=== PATIENT | male | born 1940 | race Two or more races ===

== ENCOUNTER → 2024-02-11 | Outpatient (CLI) | payer MEDICARE, MEDICAID, SELFPAY ==
[2024-02-11 11:32] LABS: Basophils # (Auto) 0.1 Thou/mm3 (0.0-0.2); Basophils % (Auto) 1 % (0-2.5); Eosinophils # (Auto) 0.2 Thou/mm3 (0.0-0.5); Eosinophils % (Auto) 3 % (0-10); Hematocrit 36.8 % (41.0-53.0); Hemoglobin 11.9 g/dL (13.5-16.0); Immature Granulocytes % (Auto) 0 % (0-0); Immature Granulocytes Auto 0.02 Thou/mm3 (0.00-0.00); Lymphocytes # (Auto) 1.8 Thou/mm3 (1.0-4.8); Lymphocytes % (Auto) 29 % (10-50); Mean Corpuscular HGB Conc 32.3 g/dl (31.0-37.0); Mean Corpuscular Hemoglobin 31.5 pg (25.0-35.0); Mean Corpuscular Volume 97 fL (80-100); Monocytes # (Auto) 0.5 Thou/mm3 (0.0-0.8); Monocytes % (Auto) 9 % (0-12); Neutrophils # (Auto) 3.5 Thou/mm3 (1.8-7.7); Neutrophils % (Auto) 58 % (37-80); Nucleated Red Blood Cell % 0 /100 WBC (0); Platelet Count 198 Thou/mm3 (140-440); RDW Standard Deviation 45.1 fL (35.1-43.9); Red Blood Count 3.78 Miln/mm3 (4.50-5.90)
[2024-02-11 11:53] LABS: Prostate Specific Antigen < 0.10 ng/mL (0-4.00)
[2024-02-11 11:57] LABS: Alanine Aminotransferase 9 U/L (10-49); Albumin, Serum 3.9 gm/dL (3.4-4.8); Albumin/Globulin Ratio 1.6 (1.2-2.2); Alkaline Phosphatase 62 U/L (46-116); Anion Gap 6 (7-16); Aspartate Amino Transferase 15 U/L (0-34); BUN/Creatinine Ratio 18 Ratio (12-20); Bilirubin,Total 0.5 mg/dL (0.3-1.2); Blood Urea Nitrogen 18 mg/dL (9-23); Calcium 9.6 mg/dL (8.3-10.6); Calcium (Corrected) 9.7 mg/dL (8.5-10.1); Chloride 111 mMol/L (98-107); Globulin 2.5 gm/dL (2.3-3.5); Glucose 101 mg/dL (74-106); Osmolality,Calculated 288 (275-295); Potassium 5.2 mMol/L (3.4-5.1); Sodium 144 mMol/L (136-145); Total Protein 6.4 gm/dL (5.7-8.2); eGFR > 60 See Note
== END | disposition home or self-care (01) ==
LOC: SCTO 10:15
PROVIDERS: PCP Family Medicine; Referring Provider Nurse Practitioner Family; Visit Provider Nurse Practitioner Family
DX: C61 Malignant neoplasm of prostate (principal); C79.51 Secondary malignant neoplasm of bone
CPT/HCPCS: 36415; 80053; 84153; 85025

== ENCOUNTER 2024-02-12 08:57 | Outpatient (RCR) | payer MEDICARE, MEDICAID, SELFPAY | END 2024-02-23 23:59 | disposition home or self-care (01) | LOC: SCTC 08:57 | PROVIDERS: PCP Family Medicine; Referring Provider Family Medicine; Visit Provider Nurse Practitioner Family | DX: C61 Malignant neoplasm of prostate (principal); C79.51 Secondary malignant neoplasm of bone; Z79.818 Long term (current) use of other agents affecting estrogen receptors and estrogen levels | CPT/HCPCS: 99212; G0463 ==

== ENCOUNTER → 2024-02-28 | Outpatient (CLI) | payer MEDICARE, MEDICAID, SELFPAY ==
[2024-02-28 11:50] LABS: Basophils % (Auto) 1 % (0-2.5); Eosinophils # (Auto) 0.2 Thou/mm3 (0.0-0.5); Eosinophils % (Auto) 3 % (0-10); Hematocrit 37.1 % (41.0-53.0); Hemoglobin 12.2 g/dL (13.5-16.0); Immature Granulocytes % (Auto) 0 % (0-0); Immature Granulocytes Auto 0.02 Thou/mm3 (0.00-0.00); Lymphocytes # (Auto) 1.7 Thou/mm3 (1.0-4.8); Lymphocytes % (Auto) 29 % (10-50); Mean Corpuscular HGB Conc 32.9 g/dl (31.0-37.0); Mean Corpuscular Hemoglobin 31.8 pg (25.0-35.0); Mean Corpuscular Volume 97 fL (80-100); Monocytes # (Auto) 0.5 Thou/mm3 (0.0-0.8); Monocytes % (Auto) 9 % (0-12); Neutrophils # (Auto) 3.5 Thou/mm3 (1.8-7.7); Neutrophils % (Auto) 58 % (37-80); Nucleated Red Blood Cell % 0 /100 WBC (0); Platelet Count 195 Thou/mm3 (140-440); RDW Standard Deviation 44.9 fL (35.1-43.9); Red Blood Count 3.84 Miln/mm3 (4.50-5.90)
[2024-02-28 12:07] LABS: Prostate Specific Antigen < 0.10 ng/mL (0-4.00)
[2024-02-28 12:35] LABS: Alanine Aminotransferase 10 U/L (10-49); Albumin/Globulin Ratio 1.7 (1.2-2.2); Alkaline Phosphatase 58 U/L (46-116); Anion Gap 7 (7-16); Aspartate Amino Transferase 13 U/L (0-34); BUN/Creatinine Ratio 17 Ratio (12-20); Bilirubin,Total 0.4 mg/dL (0.3-1.2); Blood Urea Nitrogen 19 mg/dL (9-23); Calcium 9.6 mg/dL (8.3-10.6); Calcium (Corrected) 9.6 mg/dL (8.5-10.1); Carbon Dioxide 27.5 mMol/L (20.0-31.0); Chloride 108 mMol/L (98-107); Creatinine (Component) 1.1 mg/dL (0.6-1.3); Globulin 2.4 gm/dL (2.3-3.5); Glucose 104 mg/dL (74-106); Osmolality,Calculated 285 (275-295); Potassium 4.9 mMol/L (3.4-5.1); Sodium 142 mMol/L (136-145); Total Protein 6.4 gm/dL (5.7-8.2); eGFR > 60 See Note
== END | disposition home or self-care (01) ==
PROVIDERS: PCP Family Medicine; Referring Provider Nurse Practitioner Family; Visit Provider Nurse Practitioner Family
DX: C61 Malignant neoplasm of prostate (principal); C79.51 Secondary malignant neoplasm of bone
CPT/HCPCS: 36415; 80053; 84153; 85025

== ENCOUNTER 2024-03-03 13:07 | Outpatient (RCR) | payer MEDICARE, MEDICAID, SELFPAY | END 2024-03-25 23:59 | disposition home or self-care (01) | LOC: SCTC 13:07 | PROVIDERS: PCP Family Medicine; Referring Provider Internal Medicine Hematology & Oncology; Visit Provider Internal Medicine Hematology & Oncology | DX: Z51.11 Encounter for antineoplastic chemotherapy (principal); C61 Malignant neoplasm of prostate; C79.51 Secondary malignant neoplasm of bone; Z79.818 Long term (current) use of other agents affecting estrogen receptors and estrogen levels | CPT/HCPCS: 96365; 96367; 96402; J3489; J9217 ==

== ENCOUNTER → 2024-07-31 | Outpatient (CLI) | payer MEDICARE, MEDICAID, SELFPAY ==
[2024-07-31 11:00] LABS: Basophils % (Auto) 1 % (0-2.5); Eosinophils # (Auto) 0.2 Thou/mm3 (0.0-0.5); Eosinophils % (Auto) 3 % (0-10); Hematocrit 35.8 % (41.0-53.0); Hemoglobin 11.9 g/dL (13.5-16.0); Immature Granulocytes % (Auto) 0 % (0-0); Immature Granulocytes Auto 0.02 Thou/mm3 (0.00-0.00); Lymphocytes # (Auto) 1.9 Thou/mm3 (1.0-4.8); Lymphocytes % (Auto) 33 % (10-50); Mean Corpuscular HGB Conc 33.2 g/dl (31.0-37.0); Mean Corpuscular Hemoglobin 31.8 pg (25.0-35.0); Mean Corpuscular Volume 96 fL (80-100); Monocytes # (Auto) 0.6 Thou/mm3 (0.0-0.8); Monocytes % (Auto) 10 % (0-12); Neutrophils # (Auto) 3.1 Thou/mm3 (1.8-7.7); Neutrophils % (Auto) 54 % (37-80); Nucleated Red Blood Cell % 0 /100 WBC (0); Platelet Count 186 Thou/mm3 (140-440); RDW Standard Deviation 45.9 fL (35.1-43.9); Red Blood Count 3.74 Miln/mm3 (4.50-5.90); White Blood Count 5.8 Thou/mm3 (3.8-10.6)
[2024-07-31 11:38] LABS: Alanine Aminotransferase 10 U/L (10-49); Albumin/Globulin Ratio 1.4 (1.2-2.2); Alkaline Phosphatase 62 U/L (46-116); Anion Gap 7 (7-16); Aspartate Amino Transferase 18 U/L (0-34); BUN/Creatinine Ratio 16 Ratio (12-20); Bilirubin,Total 0.5 mg/dL (0.3-1.2); Blood Urea Nitrogen 16 mg/dL (9-23); Calcium 9.3 mg/dL (8.3-10.6); Calcium (Corrected) 9.3 mg/dL (8.5-10.1); Carbon Dioxide 25.5 mMol/L (20.0-31.0); Chloride 107 mMol/L (98-107); Globulin 2.9 gm/dL (2.3-3.5); Glucose 104 mg/dL (74-106); Osmolality,Calculated 278 (275-295); Potassium 4.7 mMol/L (3.4-5.1); Sodium 139 mMol/L (136-145); Total Protein 6.9 gm/dL (5.7-8.2); eGFR > 60 See Note
[2024-07-31 13:45] LABS: Prostate Specific Antigen < 0.10 ng/mL (0-4.00)
== END | disposition home or self-care (01) ==
LOC: SCTO 09:44
PROVIDERS: PCP Family Medicine; Referring Provider Nurse Practitioner Family; Visit Provider Nurse Practitioner Family
DX: C61 Malignant neoplasm of prostate (principal); C79.51 Secondary malignant neoplasm of bone
CPT/HCPCS: 36415; 80053; 84153; 85025

== ENCOUNTER 2024-08-12 13:20 | Outpatient (RCR) | payer MEDICARE, MEDICAID, SELFPAY ==
--- NOTE | 2024-08-14 14:17 | CTCFLWUP_ITS ---
Patient: DANIELE LARA : 1940 Page 2 of 2 FOLLOW UP NOTE DATE OF SERVICE: 08/11/2024 NAME: DANIELE LARA ACCOUNT: [id number] : 1940 AGE: 84 INTERVAL HISTORY: Subjective: Chief Complaint Follow-up for metastatic prostate cancer History of Present Illness Mr. Ryan is an 84-year-old male presenting for follow-up of metastatic prostate cancer. He was initially diagnosed on May 12, 2019, and has a history of radiation therapy to the prostate in 2009. The patient's prostate cancer has progressed over time. A bone scan in 2014 revealed widespread osseous metastatic disease. Due to rising PSA levels, he was started on Casodex and Lupron. As the disease progressed, he was transitioned to Xtandi, which he continues to take and tolerate well. His current PSA level is reported to be less than 0.1. Mr. Ryan also has a history of osteoporosis diagnosed in 2013. He was initially treated with Xgeva but was unable to tolerate it. He was then switched to Zometa, with his last dose administered in February 2020. Since then, he has been experiencing wobbly teeth and requires dental work. His dentist has prescribed Amoxicillin 500 mg three times daily for 30 days, which he is currently taking. The patient continues to take calcium and vitamin D supplements and reports compliance with his Xtandi regimen for prostate cancer. Overall, Mr. Ryan states he is doing well and has no specific complaints. He is able to ambulate without difficulty. Medications and Supplements - Casodex - Lupron - Xtandi - Patient tolerating well and compliant - Xgeva - Unable to tolerate - Zometa - Last dose in February 2020 - Amoxicillin 500 mg by mouth 3 times daily for 30 days - Prescribed by dentist - Calcium - Vitamin D Review of Systems HEENT: Positive for wobbly teeth. Objective: Physical Examination General: All within normal limits. Patient is able to ambulate well. Laboratory, Imaging, and Diagnostic Test Results - Bone scan (2014): Showed widespread osseous metastatic disease. - PSA: Current value less than 0.1. Previously up-trending (specific dates and values not provided). TREATMENT HISTORY: Care?Plan Start?Date Cycle Day Intent Xgeva?120?mg?q?3?months 06/18/2019 1 90 Palliative Lupron?7.5?mg 01/15/2020 1 30 Palliative Zoledronic?Acid?4?mg 04/04/2021 1 90 Palliative HISTORY OF PRESENT ILLNESS: OTHER MEDICAL HISTORY/CONDITIONS: FAMILY HISTORY: SOCIAL HISTORY: MEDICATIONS: 1. amlodipine - 10 mg 1 tab Daily 2. amoxicillin - 500 mg 1 Capsule Three times a day 3. Calcium 600 + D(3) - 1 tab Each Day 4. doxazosin - 4 mg 1 tab Continuously 5. Lovaza - 1 gram 1 gm Twice a Day 6. meloxicam - 15 mg 1 tab Daily 7. MVW Complete Formul Probiotic - 40 billion cell -15 mg 1 Capsule Daily 8. simvastatin - 20 mg 1 tab Daily 9. Xtandi - 40 mg 2 Capsule Daily Medications Last Reconciled by Karla Cash MA on 08/11/2024 ALLERGIES: No Known Drug Allergies REVIEW OF SYSTEMS: A complete 14-point review of systems was performed and is negative except as noted in interval history. PHYSICAL EXAMINATION: VITAL SIGNS: PAIN: 0 - No pain ECOG Performance Status: 0 - Asymptomatic and fully active GENERAL APPEARANCE: Appears well, in no apparent distress, appropriately interactive. HEENT: Normocephalic, no temporal wasting, normal conjunctiva, no scleral icterus, normal hearing, lips without lesions, neck normal range of motion. CARDIOVASCULAR: Not assessed. PULMONARY: Normal respiratory effort, no respiratory distress or use of accessory muscles, speaking in full sentences, no tachypnea. EXTREMITIES: No pedal edema or cyanosis. SKIN: Normal skin appearance. NEUROLOGIC: Alert and oriented x4. PSHYCHIATRIC: Appropriate affect, mood normal, behavior normal, intact thought and speech. LABORATORY DATA: I have personally reviewed and interpreted each of the patient?s relevant lab tests, abnormal findings are below: Date 02/28/24 07/31/24 ??WHITE?BLOOD?COUNT?(Thou/mm3) 6.0 5.8 ??RED?BLOOD?COUNT?(Miln/mm3) 3.84?L 3.74?L ??HEMOGLOBIN?(gm/dl) 12.2?L 11.9?L ??HEMATOCRIT?(%) 37.1?L 35.8?L ??PLATELET?COUNT?(Thou/mm3) 195 186 ??NEUTROPHILS?%,?AUTO?(%) 58 54 ??LYMPH?%,?AUTO?(%) 29 33 ??NEUTROPHILS,?AUTO?(Thou/mm3) 3.5 3.1 ??GLUCOSE,RANDOM?(mg/dL) 104 104 ??BLOOD?UREA?NITROGEN?(mg/dL) 19 16 ??CREATININE?(mg/dL) 1.10 1.00 ??SODIUM?(mmol/L) 142 139 ??POTASSIUM?(mmol/L) 4.9 4.7 ??CHLORIDE?(mmol/L) 108?H 107 ??CrCl?(CandG)?(ml/min) 53.55 58.72 ??AST/SGOT?(Unit/L) 13 18 ??ALT/SGPT?(Unit/L) 10 10 ??ALKALINE?PHOSPHATASE?(Unit/L) 58 62 ??BILIRUBIN,?TOTAL?(mg/dL) 0.4 0.5 ??PROTEIN?TOTAL?(gm/dl) 6.4 6.9 ??ALBUMIN,?SERUM?(gm/dl) 4.0 4.0 ??GLOBULIN?(gm/dl) 2.4 2.9 ??ALBUMIN/GLOBULIN?RATIO 1.7 1.4 ??CALCIUM,?SERUM?(mg/dL) 9.6 9.3 ??CALCIUM?SERUM?(CORRECTED)?(mg/dL) 9.6 9.3 ASSESSMENT/PLAN: Assessment and Plan: Mr. Lara is an 84-year-old male with metastatic prostate cancer diagnosed in 2009, presenting for follow-up of his condition and management of osteoporosis. Metastatic Prostate Cancer Assessment: Patient was initially diagnosed with prostate cancer in 2009 and received radiation therapy. A bone scan in 2014 revealed widespread osseous metastatic disease. The patient's PSA was up-trending, leading to initiation of Casodex and Lupron. Upon disease progression, the patient was started on Xtandi, which he continues to tolerate well. Current PSA levels are less than 0.1, indicating good disease control. Plan: - Continue Xtandi as current regimen - Monitor PSA levels - Follow-up appointment in 3 months Osteoporosis Assessment: Patient was diagnosed with osteoporosis in 2013. Initially started on Xgeva but was unable to tolerate it. Subsequently switched to Zometa, with the last dose administered in February 2020. The patient is currently experiencing dental issues, including wobbly teeth, which require workup. Due to the risk of osteonecrosis of the jaw associated with bisphosphonate therapy, dental procedures are temporarily contraindicated until August 2024 (6 months after the last Zometa dose). Plan: - Continue calcium and vitamin D supplementation - Defer non-emergent dental procedures until August 2024 - Advise patient about the higher risk of osteonecrosis of the jaw if emergent dental work involving bone manipulation is required - Provide clearance for dental workup at the next follow-up appointment in 3 months - Continue current antibiotic regimen as prescribed by dentist: Amoxicillin 500 mg PO TID for 30 days ORDERS: Order # Description [id number] Comprehensive Metabolic Panel - 12 + CBC with Auto Diff [id number] PSA [id number] Follow Up 3 Months [id number] Basic Metabolic Panel [id number] Lab Appointment RETURN TO CLINIC: 3 months BILLING AND COMPLIANCE: I reviewed external records from providers outside my specialty as summarized above. I spent a total of 50 minutes on this patient?s care on the day of their visit excluding time spent related to any billed procedures. This time includes time spent with the patient as well as time spent documenting in the medical record, reviewing patients records and tests, obtaining history, placing orders, communicating with other healthcare professionals, counseling the patient, family or caregiver, and/or care coordination for the diagnoses above. Electronically Signed by: Guillermo Guthrie MD T: 11:27 AM CC: Ezra?ELENI Gray, Garry?Newton? PCP: Garry Glez Referring: Garry Glez This document was completed utilizing speech recognition software. Grammatical errors, random word insertions, pronoun errors, and incomplete sentences are an occasional consequence of this system due to software limitations, ambient noise, and hardware issues. Any formal questions or concerns about the content, text or information contained within the body of this dictation should be directly addressed to the provider for clarification.
== END 2024-08-23 23:59 | disposition home or self-care (01) ==
LOC: SCTC 13:20
PROVIDERS: PCP Family Medicine; Referring Provider Family Medicine; Visit Provider Internal Medicine Hematology & Oncology
DX: Z51.11 Encounter for antineoplastic chemotherapy (principal); C61 Malignant neoplasm of prostate; C79.51 Secondary malignant neoplasm of bone; Z92.3 Personal history of irradiation; M81.0 Age-related osteoporosis without current pathological fracture
CPT/HCPCS: 96402; 99213; J9217; G0463

== ENCOUNTER → 2024-11-06 | Outpatient (CLI) | payer MEDICARE, MEDICAID, SELFPAY ==
[2024-11-06 11:16] LABS: Basophils # (Auto) 0.1 Thou/mm3 (0.0-0.2); Basophils % (Auto) 1 % (0-2.5); Eosinophils # (Auto) 0.2 Thou/mm3 (0.0-0.5); Eosinophils % (Auto) 4 % (0-10); Hematocrit 37.4 % (41.0-53.0); Hemoglobin 12.0 g/dL (13.5-16.0); Immature Granulocytes Auto 0.01 Thou/mm3 (0.00-0.00); Lymphocytes # (Auto) 1.9 Thou/mm3 (1.0-4.8); Lymphocytes % (Auto) 31 % (10-50); Mean Corpuscular HGB Conc 32.1 g/dl (31.0-37.0); Mean Corpuscular Hemoglobin 31.5 pg (25.0-35.0); Mean Corpuscular Volume 98 fL (80-100); Monocytes # (Auto) 0.6 Thou/mm3 (0.0-0.8); Monocytes % (Auto) 10 % (0-12); Neutrophils # (Auto) 3.3 Thou/mm3 (1.8-7.7); Neutrophils % (Auto) 54 % (37-80); Nucleated Red Blood Cell # 0.00 Thou/mm3 (0.00-0.00); Nucleated Red Blood Cell % 0 /100 WBC (0); Platelet Count 206 Thou/mm3 (140-440); RDW Standard Deviation 46.6 fL (35.1-43.9); Red Blood Count 3.81 Miln/mm3 (4.50-5.90); White Blood Count 6.1 Thou/mm3 (3.8-10.6)
[2024-11-06 11:35] LABS: Alanine Aminotransferase 9 U/L (10-49); Albumin, Serum 4.0 gm/dL (3.4-4.8); Albumin/Globulin Ratio 1.4 (1.2-2.2); Alkaline Phosphatase 66 U/L (46-116); Anion Gap 9 (7-16); Aspartate Amino Transferase 21 U/L (0-34); BUN/Creatinine Ratio 14 Ratio (12-20); Bilirubin,Total 0.5 mg/dL (0.3-1.2); Blood Urea Nitrogen 15 mg/dL (9-23); Calcium 9.9 mg/dL (8.3-10.6); Calcium (Corrected) 9.9 mg/dL (8.5-10.1); Carbon Dioxide 26.3 mMol/L (20.0-31.0); Chloride 108 mMol/L (98-107); Creatinine (Component) 1.1 mg/dL (0.6-1.3); Globulin 2.8 gm/dL (2.3-3.5); Glucose 102 mg/dL (74-106); Osmolality,Calculated 285 (275-295); Potassium 4.6 mMol/L (3.4-5.1); Sodium 143 mMol/L (136-145); Total Protein 6.8 gm/dL (5.7-8.2); eGFR > 60 See Note
[2024-11-06 12:17] LABS: Prostate Specific Antigen < 0.10 ng/mL (0-4.00)
== END | disposition home or self-care (01) ==
PROVIDERS: PCP Family Medicine; Referring Provider Internal Medicine Hematology & Oncology; Visit Provider Internal Medicine Hematology & Oncology
DX: C61 Malignant neoplasm of prostate (principal); C79.51 Secondary malignant neoplasm of bone
CPT/HCPCS: 36415; 80053; 84153; 85025

== ENCOUNTER 2024-11-11 13:08 | Outpatient (RCR) | payer MEDICARE, MEDICAID, SELFPAY ==
--- NOTE | 2024-11-10 14:19 | CTCFLWUP_ITS ---
Patient: WILIAN LARA : 1940 Page 3 of 5 FOLLOW UP NOTE DATE OF SERVICE: 11/10/2024 NAME: WILIAN LARA ACCOUNT: [id number] : 1940 AGE: 84 INTERVAL HISTORY: Subjective: Chief Complaint Follow-up for metastatic prostate cancer History of Present Illness Mr. Ryan is an 84-year-old male presenting for follow-up of metastatic prostate cancer. He was initially diagnosed on May 12, 2019, and has a history of radiation therapy to the prostate in 2009. The patient's prostate cancer has progressed over time. A bone scan in 2014 revealed widespread osseous metastatic disease. Due to rising PSA levels, he was started on Casodex and Lupron. As the disease progressed, he was transitioned to Xtandi, which he continues to take and tolerate well. His current PSA level is reported to be less than 0.1. Patient is having a lot of pain in his teeth. He is still not scheduled for extractions. Medications and Supplements - Casodex - Lupron - Xtandi - Patient tolerating well and compliant - Xgeva - Unable to tolerate - Zometa - Last dose in February 2020 - Amoxicillin 500 mg by mouth 3 times daily for 30 days - Prescribed by dentist - Calcium - Vitamin D Review of Systems HEENT: Positive for wobbly teeth. Objective: Physical Examination General: All within normal limits. Patient is able to ambulate well. Laboratory, Imaging, and Diagnostic Test Results - Bone scan (2014): Showed widespread osseous metastatic disease. - PSA: Current value less than 0.1. Previously up-trending (specific dates and values not provided). TREATMENT HISTORY: Care?Plan Start?Date Cycle Day Intent Xgeva?120?mg?q?3?months 06/18/2019 1 90 Palliative Lupron?7.5?mg 01/15/2020 1 30 Palliative Zoledronic?Acid?4?mg 04/04/2021 1 90 Palliative ONCOLOGY HISTORY: DIAGNOSIS: ?CloneDiagnosis? 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 06/08/2009?08/16/2009: Patient received 7200 cGy radiation to the prostate. Patient continued to be on Lupron and Zometa with. Casodex. 02/13/2015 patient found to have widespread osseous metastatic disease Patient was started on Xtandi initially was on 160 mg but could not tolerate only 80 mg Patient is not doing well on 80 mg of Xtandi and tolerating well OTHER MEDICAL HISTORY/CONDITIONS: FAMILY HISTORY: ?Clone Family Hx? SOCIAL HISTORY: MEDICATIONS: 1. amlodipine - 10 mg 1 tab Daily 2. amoxicillin - 500 mg 1 Capsule 1 cap three times daily 3. Calcium 600 + D(3) - 1 tab Each Day 4. chlorhexidine gluconate - 0.12 % 15 mL Daily 5. doxazosin - 4 mg 1 tab Continuously 6. Lovaza - 1 gram 1 gm Twice a Day 7. meloxicam - 15 mg 1 tab Daily 8. simvastatin - 20 mg 1 tab Daily 9. Xtandi - 40 mg 2 Capsule Daily?Palabra Meds? Medications Last Reconciled by Juliette Powell MA on 11/10/2024 ALLERGIES: No Known Drug Allergies REVIEW OF SYSTEMS: A complete 14-point review of systems was performed and is negative except as noted in interval history. PHYSICAL EXAMINATION:?CloneBlock PE? VITAL SIGNS: PAIN: 4 - Moderate pain ECOG Performance Status: 1 - Symptomatic; ambulatory; restricted in strenuous activity GENERAL APPEARANCE: Appears well, in no apparent distress, appropriately interactive. HEENT: Normocephalic, no temporal wasting, normal conjunctiva, no scleral icterus, normal hearing, lips without lesions, neck normal range of motion. Mouth shows infected gums with visible pus CARDIOVASCULAR: Not assessed. PULMONARY: Normal respiratory effort, no respiratory distress or use of accessory muscles, speaking in full sentences, no tachypnea. EXTREMITIES: No pedal edema or cyanosis. SKIN: Normal skin appearance. NEUROLOGIC: Alert and oriented x4. PSHYCHIATRIC: Appropriate affect, mood normal, behavior normal, intact thought and speech. LABORATORY DATA: I have personally reviewed and interpreted each of the patient?s relevant lab tests, abnormal findings are below: Date 07/31/24 11/06/24 ??WHITE?BLOOD?COUNT?(Thou/mm3) 5.8 6.1 ??RED?BLOOD?COUNT?(Miln/mm3) 3.74?L 3.81?L ??HEMOGLOBIN?(gm/dl) 11.9?L 12.0?L ??HEMATOCRIT?(%) 35.8?L 37.4?L ??PLATELET?COUNT?(Thou/mm3) 186 206 ??NEUTROPHILS?%,?AUTO?(%) 54 54 ??LYMPH?%,?AUTO?(%) 33 31 ??NEUTROPHILS,?AUTO?(Thou/mm3) 3.1 3.3 ??GLUCOSE,RANDOM?(mg/dL) 104 102 ??BLOOD?UREA?NITROGEN?(mg/dL) 16 15 ??CREATININE?(mg/dL) 1.00 1.10 ??SODIUM?(mmol/L) 139 143 ??POTASSIUM?(mmol/L) 4.7 4.6 ??CHLORIDE?(mmol/L) 107 108?H ??CrCl?(CandG)?(ml/min) 58.72 49.85 ??AST/SGOT?(Unit/L) 18 21 ??ALT/SGPT?(Unit/L) 10 9?L ??ALKALINE?PHOSPHATASE?(Unit/L) 62 66 ??BILIRUBIN,?TOTAL?(mg/dL) 0.5 0.5 ??PROTEIN?TOTAL?(gm/dl) 6.9 6.8 ??ALBUMIN,?SERUM?(gm/dl) 4.0 4.0 ??GLOBULIN?(gm/dl) 2.9 2.8 ??ALBUMIN/GLOBULIN?RATIO 1.4 1.4 ??CALCIUM,?SERUM?(mg/dL) 9.3 9.9 ??CALCIUM?SERUM?(CORRECTED)?(mg/dL) 9.3 9.9 ASSESSMENT/PLAN:?Rocio Guthrie Assessment/Plan? Assessment and Plan: Mr. Lara is an 84-year-old male with metastatic prostate cancer diagnosed in 2009, presenting for follow-up of his condition and management of osteoporosis. Metastatic Prostate Cancer Assessment: Patient was initially diagnosed with prostate cancer in 2009 and received radiation therapy. A bone scan in 2014 revealed widespread osseous metastatic disease. The patient's PSA was up-trending, leading to initiation of Casodex and Lupron. Upon disease progression, the patient was started on Xtandi, which he continues to tolerate well. Current PSA levels are less than 0.1, indicating good disease control. Plan: - Continue Xtandi as current regimen - Monitor PSA levels - Follow-up appointment in 3 months Osteoporosis Assessment: Patient was diagnosed with osteoporosis in 2013. Initially started on Xgeva but was unable to tolerate it. Subsequently switched to Zometa, with the last dose administered in February 2020. The patient is currently experiencing dental issues, including wobbly teeth, which require workup. Due to the risk of osteonecrosis of the jaw associated with bisphosphonate therapy, dental procedures are temporarily contraindicated until August 2024 (6 months after the last Zometa dose). Plan: - Continue calcium and vitamin D supplementation -Patient's last Zometa was in February 2024 Patient can get his teeth extraction completed No Zometa or Xtandi Continue calcium and vitamin D3 Prescribed amoxicillin for his teeth as well as chlorhexidine Advised to follow-up with the dentist ORDERS: Order # Description [id number] Comprehensive Metabolic Panel - 12 + CBC with Auto Diff + PSA RETURN TO CLINIC: I reviewed the diagnosis, prognosis, and recommended treatment/procedure options with the patient (and/or their legal agency sales representative), including the potential benefits, risks, side effects and alternative therapies. We also discussed the option of no treatment and the possibility of clinical trial participation, if applicable. All questions were addressed, and they demonstrated understanding. They provided informed consent to proceed with the proposed plan of care. BILLING AND COMPLIANCE: I reviewed external records from providers outside my specialty as summarized above. I spent a total of 50 minutes on this patient?s care on the day of their visit excluding time spent related to any billed procedures. This time includes time spent with the patient as well as time spent documenting in the medical record, reviewing patients records and tests, obtaining history, placing orders, communicating with other healthcare professionals, counseling the patient, family or caregiver, and/or care coordination for the diagnoses above. Electronically Signed by: Guillermo Guthrie MD T: 2:16 PM CC: Ezra?Isaac,?Garry SALDAÑA?Newton,? PCP: Garry Glez Referring: Garry Glez This document was completed utilizing speech recognition software. Grammatical errors, random word insertions, pronoun errors, and incomplete sentences are an occasional consequence of this system due to software limitations, ambient noise, and hardware issues. Any formal questions or concerns about the content, text or information contained within the body of this dictation should be directly addressed to the provider for clarification.
== END 2024-11-23 23:59 | disposition home or self-care (01) ==
LOC: SCTC 13:08
PROVIDERS: PCP Family Medicine; Referring Provider Family Medicine; Visit Provider Internal Medicine Hematology & Oncology
DX: Z51.11 Encounter for antineoplastic chemotherapy (principal); C61 Malignant neoplasm of prostate; C79.51 Secondary malignant neoplasm of bone; Z92.3 Personal history of irradiation; M81.0 Age-related osteoporosis without current pathological fracture; Z79.818 Long term (current) use of other agents affecting estrogen receptors and estrogen levels
CPT/HCPCS: 96402; 99213; J9217; G0463

== ENCOUNTER → 2025-02-06 | Outpatient (CLI) | payer MEDICARE, MEDICAID, SELFPAY ==
[2025-02-06 11:58] LABS: Basophils # (Auto) 0.0 Thou/mm3 (0.0-0.2); Basophils % (Auto) 1 % (0-2.5); Eosinophils # (Auto) 0.2 Thou/mm3 (0.0-0.5); Eosinophils % (Auto) 3 % (0-10); Hematocrit 35.3 % (41.0-53.0); Hemoglobin 11.4 g/dL (13.5-16.0); Immature Granulocytes Auto 0.01 Thou/mm3 (0.00-0.00); Lymphocytes # (Auto) 1.7 Thou/mm3 (1.0-4.8); Lymphocytes % (Auto) 31 % (10-50); Mean Corpuscular HGB Conc 32.3 g/dl (31.0-37.0); Mean Corpuscular Hemoglobin 31.4 pg (25.0-35.0); Mean Corpuscular Volume 97 fL (80-100); Monocytes # (Auto) 0.4 Thou/mm3 (0.0-0.8); Monocytes % (Auto) 8 % (0-12); Neutrophils # (Auto) 3.1 Thou/mm3 (1.8-7.7); Neutrophils % (Auto) 57 % (37-80); Nucleated Red Blood Cell # 0.00 Thou/mm3 (0.00-0.00); Nucleated Red Blood Cell % 0 /100 WBC (0); Platelet Count 170 Thou/mm3 (140-440); RDW Standard Deviation 46.8 fL (35.1-43.9); Red Blood Count 3.63 Miln/mm3 (4.50-5.90); White Blood Count 5.4 Thou/mm3 (3.8-10.6)
[2025-02-06 12:18] LABS: Prostate Specific Antigen < 0.10 ng/mL (0-4.00)
[2025-02-06 12:34] LABS: Alanine Aminotransferase 7 U/L (10-49); Albumin, Serum 4.1 gm/dL (3.4-4.8); Albumin/Globulin Ratio 1.7 (1.2-2.2); Alkaline Phosphatase 64 U/L (46-116); Anion Gap 11 (7-16); Aspartate Amino Transferase 17 U/L (0-34); BUN/Creatinine Ratio 14 Ratio (12-20); Bilirubin,Total 0.5 mg/dL (0.3-1.2); Blood Urea Nitrogen 14 mg/dL (9-23); Calcium 9.2 mg/dL (8.3-10.6); Calcium (Corrected) 9.2 mg/dL (8.5-10.1); Carbon Dioxide 23.8 mMol/L (20.0-31.0); Chloride 108 mMol/L (98-107); Creatinine (Component) 1.0 mg/dL (0.6-1.3); Globulin 2.4 gm/dL (2.3-3.5); Glucose 90 mg/dL (74-106); Osmolality,Calculated 285 (275-295); Potassium 4.1 mMol/L (3.4-5.1); Sodium 143 mMol/L (136-145); Total Protein 6.5 gm/dL (5.7-8.2); eGFR > 60 See Note
== END | disposition home or self-care (01) ==
LOC: SCTO 09:39
PROVIDERS: PCP Family Medicine; Referring Provider Internal Medicine Hematology & Oncology; Visit Provider Internal Medicine Hematology & Oncology
DX: C61 Malignant neoplasm of prostate (principal); C79.51 Secondary malignant neoplasm of bone
CPT/HCPCS: 36415; 80053; 84153; 85025

== ENCOUNTER 2025-02-11 13:11 | Outpatient (RCR) | payer MEDICARE, MEDICAID, SELFPAY ==
--- NOTE | 2025-02-10 14:12 | CTCFLWUP_ITS ---
Patient: WILIAN LARA : 1940 Page 2 of 2 FOLLOW UP NOTE DATE OF SERVICE: 02/10/2025 NAME: WILIAN LARA ACCOUNT: [id number] : 1940 AGE: 84 INTERVAL HISTORY: Subjective: Chief Complaint Patient is doing well. Patient is on Lupron and Xtandi and his last PSA in February 06 is less than 0.01. Patient is yet to see the dentist and is being planned for therapy at [facility]. At this time we will continue to hold Zometa and will start it after patient has completed dental workup.patient is taking Xtandi 40 mg twice daily. Patient have some numbness after taking the medicine which last for few seconds. History of Present Illness Mr. Ryan is an 84-year-old male presenting for follow-up of metastatic prostate cancer. He was initially diagnosed on May 12, 2019, and has a history of radiation therapy to the prostate in 2009. The patient's prostate cancer has progressed over time. A bone scan in 2014 revealed widespread osseous metastatic disease. Due to rising PSA levels, he was started on Casodex and Lupron. As the disease progressed, he was transitioned to Xtandi, which he continues to take and tolerate well. His current PSA level is reported to be less than 0.1. Patient is having a lot of pain in his teeth. He is still not scheduled for extractions. Medications and Supplements - Casodex - Lupron - Xtandi - Patient tolerating well and compliant - Xgeva - Unable to tolerate - Zometa - Last dose in February 2020 - Amoxicillin 500 mg by mouth 3 times daily for 30 days - Prescribed by dentist - Calcium - Vitamin D Review of Systems HEENT: Positive for wobbly teeth. Objective: Physical Examination General: All within normal limits. Patient is able to ambulate well. Laboratory, Imaging, and Diagnostic Test Results - Bone scan (2014): Showed widespread osseous metastatic disease. - PSA: Current value less than 0.1. Previously up-trending (specific dates and values not provided). 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 06/08/2009?08/16/2009: Patient received 7200 cGy radiation to the prostate. Patient continued to be on Lupron and Zometa with. Casodex. 02/13/2015 patient found to have widespread osseous metastatic disease Patient was started on Xtandi initially was on 160 mg but could not tolerate only 80 mg Patient is not doing well on 80 mg of Xtandi and tolerating well OTHER MEDICAL HISTORY/CONDITIONS: FAMILY HISTORY: SOCIAL HISTORY: MEDICATIONS: 1. amlodipine - 10 mg 1 tab Daily 2. amoxicillin - 500 mg 1 Capsule 1 cap three times daily 3. Calcium 600 + D(3) - 1 tab Each Day 4. chlorhexidine gluconate - 0.12 % 15 mL Daily 5. doxazosin - 4 mg 1 tab Continuously 6. Lovaza - 1 gram 1 gm Twice a Day 7. meloxicam - 15 mg 1 tab Daily 8. simvastatin - 20 mg 1 tab Daily 9. Xtandi - 40 mg 2 Capsule Daily 10. Xtandi - 40 mg 2 tab Daily Medications Last Reconciled by Juliette Lara MD on 02/10/2025 ALLERGIES: No Known Drug Allergies REVIEW OF SYSTEMS: A complete 14-point review of systems was performed and is negative except as noted in interval history. PHYSICAL EXAMINATION: VITAL SIGNS: Temperature?97.1, B/P?167/59, Oxygen?Saturation?97% Weight?163?lbs PAIN: 0 - No pain ECOG Performance Status: 0 - Asymptomatic and fully active GENERAL APPEARANCE: Appears well, in no apparent distress, appropriately interactive. HEENT: Normocephalic, no temporal wasting, normal conjunctiva, no scleral icterus, normal hearing, lips without lesions, neck normal range of motion. Mouth shows infected gums with visible pus CARDIOVASCULAR: Not assessed. PULMONARY: Normal respiratory effort, no respiratory distress or use of accessory muscles, speaking in full sentences, no tachypnea. EXTREMITIES: No pedal edema or cyanosis. SKIN: Normal skin appearance. NEUROLOGIC: Alert and oriented x4. PSHYCHIATRIC: Appropriate affect, mood normal, behavior normal, intact thought and speech. LABORATORY DATA: I have personally reviewed and interpreted each of the patient?s relevant lab tests, abnormal findings are below: Date 11/06/24 02/06/25 ??WHITE?BLOOD?COUNT?(Thou/mm3) 6.1 5.4 ??RED?BLOOD?COUNT?(Miln/mm3) 3.81?L 3.63?L ??HEMOGLOBIN?(gm/dl) 12.0?L 11.4?L ??HEMATOCRIT?(%) 37.4?L 35.3?L ??PLATELET?COUNT?(Thou/mm3) 206 170 ??NEUTROPHILS?%,?AUTO?(%) 54 57 ??LYMPH?%,?AUTO?(%) 31 31 ??NEUTROPHILS,?AUTO?(Thou/mm3) 3.3 3.1 ??GLUCOSE,RANDOM?(mg/dL) 102 90 ??BLOOD?UREA?NITROGEN?(mg/dL) 15 14 ??CREATININE?(mg/dL) 1.10 1.00 ??SODIUM?(mmol/L) 143 143 ??POTASSIUM?(mmol/L) 4.6 4.1 ??CHLORIDE?(mmol/L) 108?H 108?H ??CrCl?(CandG)?(ml/min) 49.85 57.15 ??AST/SGOT?(Unit/L) 21 17 ??ALT/SGPT?(Unit/L) 9?L 7?L ??ALKALINE?PHOSPHATASE?(Unit/L) 66 64 ??BILIRUBIN,?TOTAL?(mg/dL) 0.5 0.5 ??PROTEIN?TOTAL?(gm/dl) 6.8 6.5 ??ALBUMIN,?SERUM?(gm/dl) 4.0 4.1 ??GLOBULIN?(gm/dl) 2.8 2.4 ??ALBUMIN/GLOBULIN?RATIO 1.4 1.7 ??CALCIUM,?SERUM?(mg/dL) 9.9 9.2 ??CALCIUM?SERUM?(CORRECTED)?(mg/dL) 9.9 9.2 ASSESSMENT/PLAN: Assessment and Plan: Mr. Lara is an 84-year-old male with metastatic prostate cancer diagnosed in 2009, presenting for follow-up of his condition and management of osteoporosis. Metastatic Prostate Cancer Assessment: Patient was initially diagnosed with prostate cancer in 2009 and received radiation therapy. A bone scan in 2014 revealed widespread osseous metastatic disease. The patient's PSA was up-trending, leading to initiation of Casodex and Lupron. Upon disease progression, the patient was started on Xtandi, which he continues to tolerate well. Current PSA levels are less than 0.1, indicating good disease control. Plan: - Continue Xtandi as current regimen - Monitor PSA levels - Follow-up appointment in 3 months Osteoporosis Assessment: Patient was diagnosed with osteoporosis in 2013. Initially started on Xgeva but was unable to tolerate it. Subsequently switched to Zometa, with the last dose administered in February 2020. The patient is currently experiencing dental issues, including wobbly teeth, which require workup. Due to the risk of osteonecrosis of the jaw associated with bisphosphonate therapy, dental procedures are temporarily contraindicated until August 2024 (6 months after the last Zometa dose). Plan: - Continue calcium and vitamin D supplementation -Patient's last Zometa was in February 2024 Patient can get his teeth extraction completed No Zometa Continue calcium and vitamin D3 Patient has appointment scheduled for dentist in April 2025 ,advised to follow-up with the dentist Return to clinic in 6 months ORDERS: Order # Description [id number] Comprehensive Metabolic Panel - 12 + CBC with Auto Diff + PSA [id number] Follow Up 6 Month RETURN TO CLINIC: I reviewed the diagnosis, prognosis, and recommended treatment/procedure options with the patient (and/or their legal credit and collections representative), including the potential benefits, risks, side effects and alternative therapies. We also discussed the option of no treatment and the possibility of clinical trial participation, if applicable. All questions were addressed, and they demonstrated understanding. They provided informed consent to proceed with the proposed plan of care. BILLING AND COMPLIANCE: I reviewed external records from providers outside my specialty as summarized above. I spent a total of 50 minutes on this patient?s care on the day of their visit excluding time spent related to any billed procedures. This time includes time spent with the patient as well as time spent documenting in the medical record, reviewing patients records and tests, obtaining history, placing orders, communicating with other healthcare professionals, counseling the patient, family or caregiver, and/or care coordination for the diagnoses above. Electronically Signed by: Guillermo Guthrie MD T: 2:10 PM CC: Ezra?Isaac?, Garry?Newton? PCP: Guillermo Guthrie Referring: Guillermo Guthrie This document was completed utilizing speech recognition software. Grammatical errors, random word insertions, pronoun errors, and incomplete sentences are an occasional consequence of this system due to software limitations, ambient noise, and hardware issues. Any formal questions or concerns about the content, text or information contained within the body of this dictation should be directly addressed to the provider for clarification.
== END 2025-02-22 23:59 | disposition home or self-care (01) ==
LOC: SCTC 13:11
PROVIDERS: PCP Family Medicine; Referring Provider Internal Medicine Hematology & Oncology; Visit Provider Internal Medicine Hematology & Oncology
DX: Z51.11 Encounter for antineoplastic chemotherapy (principal); C61 Malignant neoplasm of prostate; C79.51 Secondary malignant neoplasm of bone; Z92.3 Personal history of irradiation; M81.0 Age-related osteoporosis without current pathological fracture
CPT/HCPCS: 96402; 99212; J9217; G0463